=== PATIENT | female | born 1970 | race African-American/Black ===

== ENCOUNTER 2017-03-04 12:20 | Emergency (ER) | payer OTHER ==
[2017-03-04 12:35] VITALS: BP 147/86; PULSE 70; TEMP 98.5; BMI 27.1
[2017-03-04] MEDS ORDERED: KETOROLAC TROMETHAMINE 30 MG/1 ML VIAL IM ONE (13:32)
[2017-03-04] MEDS ORDERED: diazePAM 2 MG TABLET PO ONE (13:32)
[2017-03-04] MEDS ORDERED: KETOROLAC TROMETHAMINE 30 MG/1 ML VIAL ONE (13:36)
[2017-03-04] MEDS ORDERED: diazePAM 2 MG TABLET ONE (13:37)
[2017-03-04 13:46] LABS: URINE APPEARANCE SLCLOUDY; URINE BILIRUBIN NEGATIVE (NEGATIVE); URINE COLOR YELLOW; URINE GLUCOSE (UA) NEGATIVE (NEGATIVE); URINE KETONE NEGATIVE (NEGATIVE); URINE NITRITE NEGATIVE (NEGATIVE); URINE PROTEIN NEGATIVE (NEGATIVE); URINE UROBILINOGEN NEGATIVE E.U./dl (0.2-1.0)
[2017-03-04 13:47] LABS: URINE BLOOD 2+ (NEGATIVE); URINE LEUK ESTERASE TRACE (NEGATIVE)
[2017-03-04 13:49] LABS: URINE MUCUS RARE; URINE RBC 2 /hpf (0-3); URINE WBC 5 /hpf (3-5)
--- NOTE | 2017-03-04 14:07 | PDOC ---
History of Present Illness - General Chief Complaint: Back Pain Stated Complaint: BACK PAIN Time Seen by Provider: 03/04/17 12:46 History Source: Patient Exam Limitations: No Limitations - History of Present Illness Initial Comments: 03/04/17 14:06 CHIEF COMPLAINT: Back pain HISTORY OF PRESENT ILLNESS: This is an otherwise healthy 46 year old female who presents to the ED complaining of left lower back pain. She reports that she lifted several heavy boxes while working yesterday. The pain did not start immediately, but did "keep me up all night". She denies fevers/chills, nausea/ vomiting, or any other symptoms. She has not had LE numbness or weakness. She denies incontinence of urine or stool. Vital signs on arrival are notable for BP 147/86. REVIEW OF SYSTEMS: GENERAL/CONSTITUTIONAL: No fevers or chills. No weakness. No weight change. HEAD, EYES, EARS, NOSE AND THROAT: No change in vision. No ear pain or discharge. No sore throat. CARDIOVASCULAR: No chest pain or palpitations. RESPIRATORY: No cough, wheezing, or shortness of breath. GASTROINTESTINAL: No nausea, vomiting, diarrhea or constipation. GENITOURINARY: No dysuria, frequency, or change in urination. LMP finished Friday. MUSCULOSKELETAL: See HPI. SKIN: No rash or easy bruising. NEUROLOGIC: No headache, vertigo, loss of consciousness, or loss of sensation. HEMATOLOGIC/LYMPHATIC: No anemia, easy bleeding, or history of blood clots. ALLERGIC/IMMUNOLOGIC: No hives or skin allergy. No latex allergy. PHYSICAL EXAM: GENERAL: The patient is awake, alert, and fully oriented, in no acute distress. ENT: Pupils equal, round and reactive to light, extraocular movements intact, sclera anicteric, conjunctiva clear. Neck supple. LUNGS: Clear to auscultation bilaterally. Normal excursion. No respiratory distress or use of accessory muscles. CV: RRR, S1/S2, no MRG. Cap refill < 2 sec. ABDOMEN: Soft, non-distended, non-tender. EXTREMITIES: Normal range of motion, no edema. NEUROLOGICAL: Normal speech, normal gait. CN II-XII grossly intact. Left lumbar paravertebral tenderness, left CVA tenderness. PSYCH: Normal mood, normal affect. SKIN: Warm, dry, normal turgor, no rashes or lesions noted. Past History - Past Medical History Allergies/Adverse Reactions: Allergies Allergy/AdvReac Type Severity Reaction Status Date / Time No Known Allergies Allergy Verified 03/04/17 12:35 Home Medications: Ambulatory Orders Ibuprofen [Motrin -] 600 mg PO QID PRN #30 tablet 03/04/17 Oxycodone HCl/Acetaminophen [Percocet 5-325 mg Tablet] 1 - 2 tab PO Q6H PRN #20 tab MDD 6 tabs 03/04/17 Tamsulosin HCl [Flomax] 0.4 mg PO DAILY #7 capsule 03/04/17 Cardiac Disorders: Yes - Surgical History Abdominal Surgery: Yes (ectopic ) - Immunization History Immunization Up to Date: Yes - Psycho/Social/Smoking Cessation Hx Anxiety: No Suicidal Ideation: No Smoking History: Never smoked Have you smoked in the past 12 months: No Number of Cigarettes Smoked Daily: 0 Cigars Per Day: 0 Hx Alcohol Use: No Drug/Substance Use Hx: No Substance Use Type: None *Physical Exam - Vital Signs Last Vital Signs Temp Pulse Resp BP Pulse Ox 98.5 F 70 18 147/86 97 03/04/17 12:32 03/04/17 12:32 03/04/17 12:32 03/04/17 12:32 03/04/17 12:32 ED Treatment Course - ADDITIONAL ORDERS Additional order review: Laboratory Results 03/04/17 03/04/17 13:30 12:46 Urine Color Yellow Urine Appearance Slcloudy Urine pH 6.0 Ur Specific [place] 1.028 Urine Protein Negative Urine Glucose (UA) Negative Urine Ketones Negative Urine Blood 2+ H Urine Nitrite Negative Urine Bilirubin Negative Urine Urobilinogen Negative Ur Leukocyte Esterase Trace H Urine RBC 2 Urine WBC 5 Ur Epithelial Cells Moderate Urine Mucus Rare Urine HCG, Qual Negative - RADIOLOGY Radiology Studies Ordered: Category Date Time Status SPIRAL- RENAL-STONE CT [CT] Stat CT Scan 03/04/17 13:52 Ordered - Medications Given in the ED: ED Medications Discontinued Medications Generic Name Dose Route Start Last Admin Trade Name Freq PRN Reason Stop Dose Admin Diazepam 2 mg 03/04/17 13:32 03/04/17 13:40 Valium - PO 03/04/17 13:33 2 mg ONCE ONE Administration Ketorolac Tromethamine 30 mg 03/04/17 13:32 03/04/17 13:40 Toradol Injection - IM 03/04/17 13:33 30 mg ONCE ONE Administration Medical Decision Making - Medical Decision Making 03/04/17 14:10 A/P: 46 year old female with low back pain, likely traumatic, but with left CVA tenderness. -Toradol 30mg IM and diazepam 2mg po -UA with 2+ blood -Will obtain CT spiral to r/o renal stone 03/04/17 16:23 CT shows 1 to 2 mm left UVJ calculus. No hydronephrosis or hydroureter. -Flomax -Percocet/ibuprofen -Urology followup -Return precautions reviewed *DC/Admit/Observation/Transfer Diagnosis at time of Disposition: Kidney stone - Discharge Dispostion Admit: No - Prescriptions Prescriptions: Tamsulosin HCl [Flomax] 0.4 mg PO DAILY #7 capsule Ibuprofen [Motrin -] 600 mg PO QID PRN #30 tablet PRN Reason: Pain Oxycodone HCl/Acetaminophen [Percocet 5-325 mg Tablet] 1 - 2 tab PO Q6H PRN #20 tab MDD 6 tabs PRN Reason: Pain - Referrals Referrals: Tc Elliott MD [Primary Care Provider] - Santy Boyd MD [Staff Physician] - 1 week (Urology) - Patient Instructions Printed Discharge Instructions: DI for Kidney Stones Additional Instructions: -Take Percocet and ibuprofen as prescribed for pain and Flomax as prescribed to help the stone pass -Follow up with urology (referral enclosed) -Return here for fever, uncontrolled pain, or any other concerning symptoms - Post Discharge Activity Work/School Note: Back to Work
[2017-03-04] MEDS ORDERED: TAMSULOSIN HCL 0.4 MG CAP.ER.24H (FP) PO ONE (16:09)
[2017-03-04] MEDS ORDERED: OXYCODONE/APAP 5/325MG COMBO TABLET PO ONE (16:13)
[2017-03-04] MEDS ORDERED: OXYCODONE/APAP 5/325MG COMBO TABLET ONE (16:19)
[2017-03-04] MEDS ORDERED: TAMSULOSIN HCL 0.4 MG CAP.ER.24H (FP) ONE (16:22)
== END 2017-03-04 16:25 | disposition home or self-care (01) ==
LOC: JERFT 12:20
PROC: 3E0233Z Introduction of Anti-inflammatory into Muscle, Percutaneous Approach (ICD-10-PCS; principal; 2017-03-04)
DX: N20.0 Calculus of kidney (principal)
CPT/HCPCS: 74176; 81003; 81015; 84703; 96372; 99281-25

== ENCOUNTER 2017-12-19 02:52 | Emergency (ER) | payer OTHER ==
[2017-12-19 03:09] VITALS: TEMP 98.6; BMI 27.4
--- NOTE | 2017-12-19 03:19 | PDOC ---
History of Present Illness - General Chief Complaint: Chest Pain Stated Complaint: CHEST PAIN Time Seen by Provider: 12/19/17 03:17 History Source: Patient Exam Limitations: No Limitations Past History - Past Medical History Allergies/Adverse Reactions: Allergies Allergy/AdvReac Type Severity Reaction Status Date / Time No Known Allergies Allergy Verified 12/19/17 03:08 Home Medications: Ambulatory Orders Aspirin 81 mg PO DAILY 12/19/17 Cardiac Disorders: Yes ([place]) COPD: No - Surgical History Abdominal Surgery: Yes (ectopic ) - Immunization History Immunization Up to Date: Yes - Suicide/Smoking/Psychosocial Hx Smoking History: Never smoked Have you smoked in the past 12 months: No Number of Cigarettes Smoked Daily: 0 Cigars Per Day: 0 Information on smoking cessation initiated: No Hx Alcohol Use: No Drug/Substance Use Hx: No Substance Use Type: None *Physical Exam - Vital Signs Last Vital Signs Temp Pulse Resp BP Pulse Ox 98.6 F 70 20 143/85 99 12/19/17 02:53 12/19/17 02:53 12/19/17 02:53 12/19/17 02:53 12/19/17 02:53 Heart Score/ECG Review - History History: Slightly suspicious - Electrocardiogram EKG: Normal - Age Age: 45-65 - Risk Factors Based on the list above the patient has:: No risk factors known - Troponin Troponin: </= normal limit - Score Heart Score - Total: 1 ED Treatment Course - LABORATORY CBC & Chemistry Diagram: 12/19/17 03:53 12/19/17 03:53 *DC/Admit/Observation/Transfer Diagnosis at time of Disposition: Atypical chest pain - Discharge Dispostion Disposition: HOME Condition at time of disposition: Stable Admit: No - Referrals Referrals: Tc Elliott MD [Primary Care Provider] - - Patient Instructions Printed Discharge Instructions: DI for Atypical Chest Pain Additional Instructions: Your EKG and blood work were normal today. It does not appear you had a heart attack today. You may have irritated the muscles in your chest wall your lifting a heavy box. You may take ibuprofen 100 mg 3 times a day to help with her pain. You may also use the Percocet every 6 hours as needed for breakthrough pain. Please follow-up with your primary care doctor this week. Avoid lifting heavy boxes greater than 10 pounds. Return to the emergency department if you have worsening chest pain, shortness of breath, lightheadedness, palpitations, dizziness, or any changes in your symptoms. - Post Discharge Activity Forms/Work/School Notes: Back to Work
[2017-12-19] MEDS ORDERED: ASPIRIN COATED 81 MG TABLET.EC ONE (03:38)
--- NOTE | 2017-12-19 04:10 | PDOC ---
*Physical Exam - Vital Signs Last Vital Signs Temp Pulse Resp BP Pulse Ox 98.6 F 70 20 143/85 99 12/19/17 02:53 12/19/17 02:53 12/19/17 02:53 12/19/17 02:53 12/19/17 02:53 ED Treatment Course - Medications Given in the ED: ED Medications Discontinued Medications Generic Name Dose Route Start Last Admin Trade Name Freq PRN Reason Stop Dose Admin Oxycodone/Acetaminophen 1 combo 12/19/17 03:32 12/19/17 03:52 Percocet 5/325 - PO 12/19/17 03:33 1 combo ONCE ONE Administration Medical Decision Making - Medical Decision Making 12/19/17 04:08 Pt seen by the Advanced Practice Provider under my direct supervision Pt interviewed and examined Ancillary studies reviewed I agree with plan as outlined by the Advanced Practice Provider ERIS Monte 47-year-old female with prior cardiac history presents with atypical chest pain. The patient was lifting a TV cart and subsequently started feeling reproducible midsternal chest pain. No short of breath or dyspnea on exertion. Since patient's pain is reports we'll palpation and movement. I have very low seizure acute coronary syndrome at this time. We'll obtain one troponin, and if negative patient can be discharged. *DC/Admit/Observation/Transfer - Referrals Referrals: Tc Elliott MD [Primary Care Provider] - - Patient Instructions - Post Discharge Activity
[2017-12-19 04:25] LABS: BASO % 0.7 % (0-2.0); EOS % 3.5 % (0-4.5); HEMATOCRIT 32.7 % (32.4-45.2); LYMPH % 50.1 % (8-40); MCH 30.6 pg (25.7-33.7); MCHC 33.6 g/dl (32.0-36.0); MEAN CELL VOLUME 91.3 fl (80-96); MEAN PLT VOLUME 8.4 fl (7.5-11.1); MONO % 8.6 % (3.8-10.2); NEUT % 37.1 % (42.8-82.8); PLATELET COUNT 247 K/MM3 (134-434); RBC 3.59 M/mm3 (3.60-5.2); RDW 15.2 % (11.6-15.6); WHITE BLOOD COUNT 4.4 K/mm3 (4.0-10.0)
[2017-12-19 04:37] LABS: INR 1.12 (0.82-1.09); PROTHROMBIN TIME (PATIENT) 12.6 SEC (9.98-11.88)
[2017-12-19 04:48] LABS: ALBUMIN 3.4 g/dl (3.4-5.0); ANION GAP 9 (8-16); BLOOD UREA NITROGEN 15 mg/dL (7-18); CALCIUM 8.6 mg/dL (8.5-10.1); CHLORIDE 108 mmol/L (98-107); CO2 24 mmol/L (21-32); GLUCOSE,RANDOM 89 mg/dL (74-106); MAGNESIUM 1.7 mg/dL (1.8-2.4); PHOSPHOROUS 3.2 mg/dL (2.5-4.9); POTASSIUM 3.6 mmol/L (3.5-5.1); SODIUM 141 mmol/L (136-145)
[2017-12-19 04:53] LABS: BILIRUBIN,TOTAL 0.2 mg/dL (0.2-1.0); CREATININE 0.8 mg/dL (0.55-1.02); SGOT/AST 9 U/L (15-37); SGPT/ALT 13 U/L (12-78); TOT PROT 7.1 g/dl (6.4-8.2)
[2017-12-19 04:54] LABS: ALK PHOS 65 U/L (45-117)
[2017-12-19 05:51] VITALS: BP 115/75; PULSE 57
--- NOTE | 2017-12-19 09:58 | EKG ---
Test Reason : Blood Pressure : / mmHG Vent. Rate : 066 BPM Atrial Rate : 066 BPM P-R Int : 170 ms QRS Dur : 078 ms QT Int : 422 ms P-R-T Axes : 066 018 022 degrees QTc Int : 442 ms NORMAL SINUS RHYTHM ANTERIOR INFARCT , AGE UNDETERMINED ABNORMAL ECG WHEN COMPARED WITH ECG OF 09-NOV-2016 11:51, ANTERIOR INFARCT IS NOW PRESENT Confirmed by CODY BRISENO MD ([id number]) on 12/19/2017 9:58:19 AM Referred By: Confirmed By:CODY BRISENO MD
[2017-12-19] MEDS ORDERED: ASPIRIN COATED 81 MG TABLET.EC PO SCH (10:00)
== END 2017-12-19 05:51 | disposition home or self-care (01) ==
LOC: JER 02:52
DX: R07.89 Other chest pain (principal)
CPT/HCPCS: 36415; 71045-TC; 80053; 82550; 83735; 84100; 84484; 85025; 85610; 93005; 93010; 99283-25

== ENCOUNTER 2018-03-24 13:19 | Emergency (ER) | payer OTHER ==
[2018-03-24 13:27] VITALS: BP 136/72; PULSE 57; TEMP 98.1; BMI 28.4
--- NOTE | 2018-03-24 14:26 | PDOC ---
History of Present Illness - General Chief Complaint: Allergic Reaction Stated Complaint: SWOLLEN LIP Time Seen by Provider: 03/24/18 13:58 History Source: Patient Exam Limitations: No Limitations - History of Present Illness Initial Comments: 03/24/18 14:23 Patient is a 47 old female, history of [place] currently only taking aspirin presents for evaluation of swelling to left upper lateral lip patient reports yesterday she was outside all day went to take a nap and woke up an hour after started to have swelling to left upper lip. He noted a white bubble to left upper lateral lip. Called out of work and was instructed to obtain a doctor's note here to ER. Denies any respiratory difficulty, or difficulty swallowing. Past Medical History: [Denies]. Allergies: No known allergies Family History: Non-contributory Social History: Denies smoking, alcohol use, or IVDU Review of Systems GENERAL/CONSTITUTIONAL: [No fever or chills. No weakness. No weight change.] HEAD, EYES, EARS, NOSE AND THROAT: [No change in vision. No ear pain or discharge. No sore throat. Swelling to left upper lateral lip ] CARDIOVASCULAR: [No chest pain or shortness of breath.] RESPIRATORY: [No cough, wheezing, or hemoptysis.] GASTROINTESTINAL: [No nausea, vomiting, diarrhea or constipation. No rectal bleeding.] GENITOURINARY: [No dysuria, frequency, or change in urination.] MUSCULOSKELETAL: [No joint or muscle swelling or pain. No neck or back pain.] SKIN AND BREASTS: [No rash or easy bruising.] NEUROLOGIC: [No headache, vertigo, loss of consciousness, or loss of sensation.] PSYCHIATRIC: [No depression or anxiety.] ENDOCRINE: [No increased thirst. No abnormal weight change.] HEMATOLOGIC/LYMPHATIC: [No anemia, easy bleeding, or history of blood clots.] ALLERGIC/IMMUNOLOGIC: [No hives or skin allergy. No latex allergy.] Physical Exam: GENERAL: [The patient is awake, alert, and fully oriented, in no acute distress. ] HEAD: [Normal with no signs of trauma.] EYES: [Pupils equal, round and reactive to light, extraocular movements intact, sclera anicteric, conjunctiva clear.] ENT: [Ears normal, nares patent, oropharynx clear without exudates. Moist mucous membranes. No uvula deviation. Swelling to left upper lateral lip with small white flat lesion to upper lip.] NECK: [Normal range of motion, supple without lymphadenopathy, JVD, or masses.] LUNGS: [Breath sounds equal, clear to auscultation bilaterally. No wheezes, and no crackles.] HEART: [Regular rate and rhythm, normal S1 and S2 without murmur, rub or gallop. ] ABDOMEN: [Soft, nontender, normoactive bowel sounds. No guarding, no rebound. No masses. No bruising or abrasions] RECTAL : [Guaiac negative, normal rectal tone.] MUSCULOSKELETAL: [Normal range of motion, no edema. No clubbing or cyanosis. No cords, erythema, or tenderness. No CVA Tenderness with fist.] NEUROLOGICAL: [Cranial nerves II through XII grossly intact. Normal speech, normal gait.] PSYCH: [Normal mood, normal affect.] SKIN: [Warm, Dry, normal turgor, no rashes or lesions noted.] 03/24/18 14:31 03/24/18 19:55 03/24/18 19:57 Past History - Past Medical History Allergies/Adverse Reactions: Allergies Allergy/AdvReac Type Severity Reaction Status Date / Time No Known Allergies Allergy Verified 03/24/18 13:23 Home Medications: Ambulatory Orders Aspirin 81 mg PO DAILY 12/19/17 Acyclovir 5% Ointment [Zovirax 5% Ointment -] 1 applic TP Q4HWA #1 tube Hydrocortisone 1% Cream [Hytone 1% Cream -] 1 applic TP BID #1 tube 03/24/18 Cardiac Disorders: Yes ([place]) COPD: No DVT: No - Surgical History Abdominal Surgery: Yes (ectopic ) - Immunization History Immunization Up to Date: Yes - Suicide/Smoking/Psychosocial Hx Smoking History: Never smoked Have you smoked in the past 12 months: No Number of Cigarettes Smoked Daily: 0 Cigars Per Day: 0 Information on smoking cessation initiated: No Hx Alcohol Use: No Drug/Substance Use Hx: No Substance Use Type: None *Physical Exam - Vital Signs Last Vital Signs Temp Pulse Resp BP Pulse Ox 98.1 F 57 L 18 136/72 100 03/24/18 13:25 03/24/18 13:25 03/24/18 13:25 03/24/18 13:25 03/24/18 13:25 Medical Decision Making - Medical Decision Making 03/24/18 19:56 A/P: Patient with swelling to left upper lip with a small white lesion noted, we 'll start patient on Valtrex cream and hydrocortisone, follow-up with her primary care doctor tomorrow ice to area explained to patient that she should apply ice to area for any increased swelling, respiratory difficulty, difficulty swallowing, or any other concerns return immediately to ER. *DC/Admit/Observation/Transfer Diagnosis at time of Disposition: Swollen upper lip - Discharge Dispostion Disposition: HOME Condition at time of disposition: Stable Decision to Admit order: No - Prescriptions Prescriptions: Acyclovir 5% Ointment [Zovirax 5% Ointment -] 1 applic TP Q4HWA #1 tube Hydrocortisone 1% Cream [Hytone 1% Cream -] 1 applic TP BID #1 tube - Referrals Referrals: Tc Elliott MD [Primary Care Provider] - - Patient Instructions Additional Instructions: Ice to upper lip, please apply ice to area for the next 48 hours If any increased redness, swelling or signs of infection return to the ER. - Post Discharge Activity Forms/Work/School Notes: Back to Work
== END 2018-03-24 14:51 | disposition home or self-care (01) ==
LOC: JERFT 13:19
DX: K13.0 Diseases of lips (principal); I25.2 Old myocardial infarction; Z79.82 Long term (current) use of aspirin
CPT/HCPCS: 99281-25

== ENCOUNTER 2020-01-11 02:02 | Observation (INO) | payer OTHER ==
[2020-01-11 02:17] VITALS: BMI 28.7
--- NOTE | 2020-01-11 03:25 | PDOC ---
History of Present Illness - General Chief Complaint: Chest Pain Stated Complaint: CHEST PAIN Time Seen by Provider: 01/11/20 02:36 History Source: Patient Exam Limitations: No Limitations - History of Present Illness Initial Comments: 01/11/20 06:29 49F PMH peripartum ACS (seen at [facility], xfer'd to [facility], cath'd w/o stent, 36yo) presenting with 1 hour of sudden onset right sided sharp nonpleuritic nonradiating chest pain that occurred when patient was about to go to bed. Took 81mg ASA and pain is resolving, now almost gone. Denies diaphoresis, n/v, sob. No OCPs, calf swelling/pain, hx VTE, recent travel, recent surgeries, recent immobilization. No FHx SCD or early ACS. Endorses runny nose x1 day. Endorses recent stressors. Past History - Past Medical History Allergies/Adverse Reactions: Allergies Allergy/AdvReac Type Severity Reaction Status Date / Time No Known Allergies Allergy Verified 03/24/18 13:23 Home Medications: Ambulatory Orders Aspirin 81 mg PO DAILY 12/19/17 Ferrous Sulfate [Feosol] 325 mg PO TID #60 tablet 01/11/20 Cardiac Disorders: Yes ([place]) COPD: No DVT: No - Surgical History Abdominal Surgery: Yes (ectopic ) - Immunization History Immunization Up to Date: Yes - Psycho Social/Smoking Cessation Hx Smoking History: Never smoked Have you smoked in the past 12 months: No Number of Cigarettes Smoked Daily: 0 Cigars Per Day: 0 Hx Alcohol Use: No Drug/Substance Use Hx: No Substance Use Type: None Review of Systems - Review of Systems Able to Perform ROS?: Yes Comments:: 01/11/20 06:29 CONSTITUTIONAL: Denies F / C HEENT: endorses runny nose. Denies headache, lightheadedness, dizziness RESP: Denies SOB, cough CARD: endorses right sided cp. Denies palpitations GI: Denies N / V / D, abdominal pain, bloody stool, inability to tolerate PO : Denies dysuria, hematuria, frequency SKIN: Denies rashes NEURO: Denies numbness, tingling, weakness MSK: Denies back pain *Physical Exam - Vital Signs Last Vital Signs Temp Pulse Resp BP Pulse Ox 97.7 F 67 18 162/79 100 01/11/20 02:15 01/11/20 02:15 01/11/20 02:15 01/11/20 02:15 01/11/20 02:15 - Physical Exam 01/11/20 06:29 GEN: NAD, comfortable. AAOx3. HEENT: NC/AT. No facial asymmetry. Normal voice. Supple neck w/ FROM. CV: S1/S2, RRR, no m/r/g LUNG: CTAB, no wheezes, crackles, rales, rhonchi. GI: Soft, ndnt, +BS, no guarding, no rebound. No masses. MSK: No LE edema. no calf ttp. No obvious deformities of all extremities. SKIN: Warm, dry, no rashes appreciated. PSYCH: Normal mood and affect. NEURO: Moving all extremities well. ED Treatment Course - LABORATORY CBC & Chemistry Diagram: 01/11/20 04:10 01/11/20 04:10 - RADIOLOGY Radiology Studies Ordered: Category Date Time Status CHEST X-RAY PORTABLE* [RAD] Stat Radiology 01/11/20 02:57 Ordered Medical Decision Making - Medical Decision Making 01/11/20 03:22 49F PMH peripartum ACS ([facility], 36yo) presenting with 1 hour of sudden onset right sided sharp nonpleuritic nonradiating chest pain occurring at rest; took one 81mg ASA, resolving pain. r/o ACS. PERC neg unlikely PE. consider pleurisy, MSK. - CBC, CMP, Cardiac - EKG - CXR - Monitor - Tele EKG 0214 HR 63 TN 168 QRS 78 QTc 427; NSR 01/11/20 04:12 positive nuclear stress test in 2013 per chart review: + EKG changes during stress; reversible septal perfusion defect - no district court reporter 01/11/20 05:07 labs reviewed. //admitted Discharge - Discharge Information Problems reviewed: Yes Clinical Impression/Diagnosis: Chest pain at rest - Follow up/Referral - Patient Discharge Instructions - Post Discharge Activity
[2020-01-11 04:28] LABS: BASO % 0.8 % (0-2.0); EOS % 4.3 % (0-4.5); HEMATOCRIT 30.7 % (32.4-45.2); HEMOGLOBIN 10.1 GM/dL (10.7-15.3); LYMPH % 25.8 % (8-40); MCH 30.1 pg (25.7-33.7); MCHC 32.9 g/dl (32.0-36.0); MEAN CELL VOLUME 91.5 fl (80-96); MONO % 9.8 % (3.8-10.2); NEUT % 59.3 % (42.8-82.8); PLATELET COUNT 227 K/MM3 (134-434); RBC 3.35 M/mm3 (3.60-5.2); RDW 15.9 % (11.6-15.6); WHITE BLOOD COUNT 4.4 K/mm3 (4.0-10.0)
[2020-01-11 04:41] LABS: INR 1.09 (0.83-1.09); PROTHROMBIN TIME (PATIENT) 12.9 SEC (9.7-13.0)
[2020-01-11 04:44] LABS: ACTIVATED PTT 34.5 SECONDS (25.2-36.5)
[2020-01-11 05:06] LABS: ALBUMIN 3.6 g/dl (3.4-5.0); BILIRUBIN,TOTAL 0.3 mg/dL (0.2-1); CALCIUM 8.7 mg/dL (8.5-10.1); CREATININE 0.9 mg/dL (0.55-1.3); POTASSIUM 3.5 mmol/L (3.5-5.1); TOT PROT 6.9 g/dl (6.4-8.2)
--- NOTE | 2020-01-11 05:13 | PDOC ---
Attending Attestation - Resident Resident Name: Bradford Matthews - ED Attending Attestation I have performed the following: I have examined & evaluated the patient, The case was reviewed & discussed with the resident, I agree w/resident's findings & plan, Exceptions are as noted - HPI HPI: 01/11/20 05:11 41-year-old female history of LA here today complaining of chest pain. 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 her son was 1 week old she had a catheterization through her wrist at that time she states they did not find any stent double lesions or angioplasty - Physicial Exam PE: 01/11/20 05:12 Awake alert no acute distress lungs are clear bilaterally heart is regular 30 murmurs rubs or gallops abdomen soft nontender skin is warm and well-perfused dry legs are without edema 2+ symmetric DP pulses - Medical Decision Making 01/11/20 05:12 49-year-old female history of previous LA here today complaining of chest pain plan rule out anginal or LA CBC CMP troponin EKG chest x-ray to area other pathology patient will likely require admission to observation or telemetry for serial troponins to rule out ACS
[2020-01-11] MEDS ORDERED: SODIUM CHLORIDE 1,000 ML IV SCH (06:15)
[2020-01-11] MEDS ORDERED: ASPIRIN 81 MG CHEWABLE TABLETS PO ONE (06:17)
--- NOTE | 2020-01-11 06:21 | PN ---
Teaching Attending Note Name of Resident: Jarrod Heller ATTENDING PHYSICIAN STATEMENT I saw and evaluated the patient. I reviewed the resident's note and discussed the case with the resident. I agree with the resident's findings and plan as documented. SUBJECTIVE: 49-year-old woman with history of peripartum ACS 10 years ago status post angiography however no stent placed, complains of right-sided sharp, nonpleuritic, nonradiating chest pain that occurred at around 8 PM on 2019. Patient was getting ready to go to bed at that time when chest pain started. Endorse taking aspirin right after this event. She denied any shortness of breath, recent travels, OCPs, calf swelling or pain or recent immobilizations. She does not take any illicit drugs, smoke, or drink excessively. No significant family history of cardiac disease endorsed. OBJECTIVE: Last Vital Signs Temp Pulse Resp BP Pulse Ox 97.7 F 67 18 162/79 100 01/11/20 02:15 01/11/20 02:15 01/11/20 02:15 01/11/20 02:15 01/11/20 02:15 On physical exam patient was not in any distress, normal skin exam, abdomen soft , nontender, Abnormal Lab Results 01/11/20 01/11/20 04:10 04:10 RBC 3.35 L Hgb 10.1 L Hct 30.7 L RDW 15.9 H Chloride 109 H Anion Gap 6 L AST 10 L ALT 12 L Normal EKG Chest x-ray reviewed ASSESSMENT AND PLAN: 49-year-old woman with atypical chest painnormal EKG, troponin negative x1 Telemetry observation Trend troponin Cardiology evaluation Echo #Anemia Iron studies, ferritin, vitamin B12 Ferrous sulfate DVT prophylaxisheparin subcutaneously
--- NOTE | 2020-01-11 06:34 | HP ---
CHIEF COMPLAINT: chest pain PCP: HISTORY OF PRESENT ILLNESS: Patient is a 49 year old female with reported history of SD (approx 10 years ago) presents with complaint of chest pain. Patient endorses symptoms began this evening approx 8PM as she was resting on her bed. Pain was described as, sharp, substernal, nonradiating. She took Aspirin 81mg, which was minimally palliative; pain lasted approx 10 minutes, prior to spontaneous improvement. Symptoms were not associated with shortness of breath. Patient denies prior occurrence of this pain. Currently, chest pain has resolvd. Denies subjective fevers, chills, shortness of breath, chest pain, palpitations, abdominal pain, nausea, vomiting, melena, hematochezia. Patient states she had an SD 10 years ago; at that time she describes cardiac catheterization (performed at [facility]), however does not endorse any stents placed at that time. She admits an exercise stress test that was performed in 2014; reported borderline stress test with ST segment abnormalities noted. 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 Currently experiencing menstrual period. ER course was notable for: (1) EKG reveals normal sinus rhythm at 63 BPM. Negative for ischemic changes. (2) Troponin 0.02 (3) Recent Travel: PAST MEDICAL HISTORY: SD (10 years ago) PAST SURGICAL HISTORY: x2 (18 years ago, 10 years ago), cardiac catheterization (10 years ago) Family History: Mother with angina, however denies any family history of SD. Denies known oncologic family history. Social History: Lives in apartment with children. Works as MIDDLE SCHOOL COACH. Independent in activities daily living. Smoking: Denies smoking cigarettes Alcohol: Denies alcohol consumption Drugs: Denies illicit drug use. Allergies No Known Allergies Allergy (Verified 03/24/18 13:23) HOME MEDICATIONS: Home Medications Medication Instructions Recorded Aspirin 81 mg PO DAILY 12/19/17 Acyclovir 5% Ointment [Zovirax 5% 1 applic TP Q4HWA #1 tube 03/24/18 Ointment -] Hydrocortisone 1% Cream [Hytone 1% 1 applic TP BID #1 tube 03/24/18 Cream -] REVIEW OF SYSTEMS CONSTITUTIONAL: Absent: fever, chills, diaphoresis, generalized weakness, malaise, loss of appetite, weight change HEENT: Absent: rhinorrhea, nasal congestion, throat pain, throat swelling, difficulty swallowing, mouth swelling, ear pain, eye pain, visual changes CARDIOVASCULAR: Admits: chest pain (resolved) Absent: syncope, palpitations, irregular heart rate, lightheadedness, peripheral edema RESPIRATORY: Absent: cough, shortness of breath, dyspnea with exertion, orthopnea, wheezing, stridor, hemoptysis GASTROINTESTINAL: Absent: abdominal pain, abdominal distension, nausea, vomiting, diarrhea, constipation, melena, hematochezia GENITOURINARY: Absent: dysuria, frequency, urgency, hesitancy, hematuria, flank pain, genital pain MUSCULOSKELETAL: Absent: myalgia, arthralgia, joint swelling, back pain, neck pain SKIN: Absent: rash, itching, pallor HEMATOLOGIC/IMMUNOLOGIC: Absent: easy bleeding, easy bruising, lymphadenopathy, frequent infections ENDOCRINE: Absent: unexplained weight gain, unexplained weight loss, heat intolerance, cold intolerance NEUROLOGIC: Absent: headache, focal weakness or paresthesias, dizziness, unsteady gait, seizure, mental status changes, bladder or bowel incontinence PSYCHIATRIC: Absent: anxiety, depression, suicidal or homicidal ideation, hallucinations. PHYSICAL EXAMINATION Vital Signs - 24 hr 01/11/20 02:15 Temperature 97.7 F Pulse Rate 67 Respiratory 18 Rate Blood Pressure 162/79 O2 Sat by Pulse 100 Oximetry (%) GENERAL: The patient is awake, alert, and fully oriented, in no acute distress. HEAD: Normocephalic, atraumatic. EYES: PERRL, extraocular movements intact, sclera anicteric, conjunctiva clear. ENT: Oropharynx clear, without erythema or exudates. Moist mucous membranes. NECK: Trachea midline, full range of motion. Supple without lymphadenopathy. LUNGS: Breath sounds equal, clear to auscultation bilaterally. No wheezes, no crackles. No accessory muscle use. HEART: Regular rate and rhythm. S1, S2 without murmur, rub or gallop. Chest pain non reproducible upon palpation. ABDOMEN: Soft, nondistended, nontender to light and deep palpation x4 quadrants. No rebound tenderness, no guarding. Normoactive bowel sounds x4 quadrants. No hepatosplenomegaly, no masses appreciated. Horizontal section scar intact, well healed. EXTREMITIES: 2+ radial, dorsalis pedis pulses bilaterally. Warm, well-perfused. No lower extremity edema bilaterally. NEUROLOGICAL: Cranial nerves II through XII grossly intact. Normal speech. No gross focal deficits. PSYCH: Normal mood, normal affect upon my encounter. SKIN: Warm, dry. Laboratory Results - last 24 hr 01/11/20 01/11/20 01/11/20 04:10 04:10 04:10 WBC 4.4 RBC 3.35 L Hgb 10.1 L Hct 30.7 L MCV 91.5 MCH 30.1 MCHC 32.9 RDW 15.9 H Plt Count 227 MPV 8.0 Absolute Neuts (auto) 2.6 Neutrophils % 59.3 D Lymphocytes % 25.8 D Monocytes % 9.8 Eosinophils % 4.3 Basophils % 0.8 Nucleated RBC % 0 PT with INR 12.90 INR 1.09 PTT (Actin FS) 34.5 Sodium 140 Potassium 3.5 Chloride 109 H Carbon Dioxide 25 Anion Gap 6 L BUN 13.0 Creatinine 0.9 Est GFR (CKD-EPI)AfAm 87.63 Est GFR (CKD-EPI)NonAf 75.61 Random Glucose 100 Calcium 8.7 Total Bilirubin 0.3 AST 10 L ALT 12 L Alkaline Phosphatase 58 Creatine Kinase 86 Troponin I 0.02 Total Protein 6.9 Albumin 3.6 ASSESSMENT/PLAN: Patient is a 49 year old female with reported history of SD (approx 10 years ago) presents with complaint of chest pain. Atypical chest pain -Sharp, substernal chest pain not associated with exertion, shortness of breath , or palpitations. Cardiac catheterization performed 10 years ago was negative for coronary artery occlusion; no stents placed. However, she had borderline stress test five years ago. -EKG reveals normal sinus rhythm, without ischemic changes. Initial troponin 0.02. Will trend. -Chest radiograph negative for acute infiltrates (upon my reading); follow radiologist read. -Will give Aspirin to load with 325mg (patient states she took 81mg earlier today). -Cardiac telemetry monitoring -[facility] transthoracic ECHO -Cardiology evaluation (Dr. Joyce [facility]) Anemia -Hgb 10.1/ Hct 30.7 (baseline Hgb approx 11). Normocytic at 91. Patient denies any hemoptysis, hematuria, hematochezia, melenic stools. Denies prior colonoscopy/ endoscopy. However, she does endorse current menstrual period which could be contributing, at least in part, to her anemia. -Will obtain iron studies, folic acid, B12. -Follow CBC FEN -NS at 100mL. hour -Follow BMP -NPO, pending cardiology evaluation Prophylaxis -SCDs, early ambulation Disposition -Telemetry observation Visit type - Emergency Visit Emergency Visit: Yes Care time: The patient presented to the Emergency Department on the above date and was hospitalized for further evaluation of their emergent condition. - New Patient This patient is new to me today: Yes Date on this admission: 01/11/20 - Critical Care Critical Care patient: No ATTENDING PHYSICIAN STATEMENT I saw and evaluated the patient. I reviewed the resident's note and discussed the case with the resident. I agree with the resident's findings and plan as documented. SUBJECTIVE: OBJECTIVE: ASSESSMENT AND PLAN:
[2020-01-11] MEDS ORDERED: ASPIRIN 81 MG CHEWABLE TABLETS ONE (06:35)
--- NOTE | 2020-01-11 09:40 | EKG ---
Test Reason : Blood Pressure : / mmHG Vent. Rate : 063 BPM Atrial Rate : 063 BPM P-R Int : 168 ms QRS Dur : 078 ms QT Int : 418 ms P-R-T Axes : 056 009 036 degrees QTc Int : 427 ms NORMAL SINUS RHYTHM NORMAL ECG WHEN COMPARED WITH ECG OF 19-DEC-2017 02:58, CRITERIA FOR ANTERIOR INFARCT ARE NO LONGER PRESENT Confirmed by Jordy Tran MD ([id number]) on 01/11/2020 9:39:58 AM Referred By: Confirmed By:Jordy Tran MD
--- NOTE | 2020-01-11 10:17 | CON.CARD ---
Consult Consult Specialty:: Cardiology Referred by:: Hospitalist Reason for Consultation:: Cardiac evaluation - History of Present Illness Chief Complaint: Chest pain History of Present Illness: Patient is a 49 year old female with previous history of DE (10 years ago) who presented this time with complaints of chest pain in the med sternum described as "sharp". She states it began last night while resting on her bed. Pain was non-radiating and she denied shortness of breath or palpitations. Pain today was reported 2/10. She denies paroxysmal nocturnal dyspnea or orthopnea. She denies fever or chills. She denies nausea, vomiting, diarrhea or abdominal pain. She denies headache or lightheadedness. She had cardiac catheterization at [facility] 10 years ago and she states that it was unremarkable. She did not require stenting. - History Source History Provided By: Patient, Medical Record Limitations to Obtaining History: No Limitations - Past Medical History Cardio/Vascular: Yes: DE - Past Surgical History Past Surgical History: Yes: , Tubal Ligation - Alcohol/Substance Use Hx Alcohol Use: No - Smoking History Smoking history: Never smoked Have you smoked in the past 12 months: No Aproximately how many cigarettes per day: 0 - Social History Usual Living Arrangement: With Child ADL: Independent Home Medications - Allergies Allergies/Adverse Reactions: Allergies Allergy/AdvReac Type Severity Reaction Status Date / Time No Known Allergies Allergy Verified 03/24/18 13:23 - Home Medications Home Medications: Ambulatory Orders Aspirin 81 mg PO DAILY 12/19/17 Family Medical History Other Family History: Angina Review of Systems - Review of Systems Constitutional: denies: Chills, Fever Cardiovascular: reports: Chest Pain. denies: Palpitations, Shortness of Breath Respiratory: denies: Cough, Hemoptysis, Orthopnea, PND, SOB, SOB on Exertion, Wheezing Gastrointestinal: denies: Abdominal Pain, Constipation, Diarrhea, Melena, Nausea , Rectal Bleeding, Vomiting Genitourinary: denies: Dysuria, Hematuria Musculoskeletal: denies: Back Pain, Joint Pain Neurological: denies: Dizziness, Headache, Seizure, Syncope Vital Signs: Vital Signs Temperature 97.7 F 01/11/20 02:15 Pulse Rate 54 L 01/11/20 07:55 Respiratory Rate 18 01/11/20 07:55 Blood Pressure 140/76 01/11/20 07:55 O2 Sat by Pulse Oximetry (%) 99 01/11/20 07:55 Eyes: Yes: PERRL HENT: Yes: Atraumatic Neck: Yes: Supple Respiratory: Yes: CTA Bilaterally Gastrointestinal: Yes: Normal Bowel Sounds, Soft. No: Tenderness Cardiovascular: Yes: Regular Rate and Rhythm JVD: No Carotid Bruit: No PMI: Non-Displaced Heart Sounds: Yes: S1, S2. No: Gallop Murmur: No: Systolic Murmur, Diastolic Murmur Edema: No - Other Data Labs, Other Data: CBC, BMP 01/11/20 04:10 01/11/20 04:10 INR, PTT INR 1.09 (0.83-1.09) 01/11/20 04:10 Troponin, BNP 01/11/20 04:10 Troponin I 0.02 Laboratory Results - last 24 hr 01/11/20 01/11/20 01/11/20 04:10 04:10 04:10 WBC 4.4 RBC 3.35 L Hgb 10.1 L Hct 30.7 L MCV 91.5 MCH 30.1 MCHC 32.9 RDW 15.9 H Plt Count 227 MPV 8.0 Absolute Neuts (auto) 2.6 Neutrophils % 59.3 D Lymphocytes % 25.8 D Monocytes % 9.8 Eosinophils % 4.3 Basophils % 0.8 Nucleated RBC % 0 PT with INR 12.90 INR 1.09 PTT (Actin FS) 34.5 Sodium 140 Potassium 3.5 Chloride 109 H Carbon Dioxide 25 Anion Gap 6 L BUN 13.0 Creatinine 0.9 Est GFR (CKD-EPI)AfAm 87.63 Est GFR (CKD-EPI)NonAf 75.61 Random Glucose 100 Calcium 8.7 Iron 34 L TIBC 330 Iron Saturation 10 L Unsaturated IBC 296 H Ferritin 6.2 L Total Bilirubin 0.3 AST 10 L ALT 12 L Alkaline Phosphatase 58 Creatine Kinase 86 Troponin I 0.02 Total Protein 6.9 Albumin 3.6 Vitamin B12 328 Serum Folate 8 Normal sinus rhythm Echo: Pending Imaging - Results Chest X-ray: Report Reviewed (Unremarkable) EKG: Report Reviewed Problem List - Problems (1) Atypical chest pain Code(s): R07.89 - OTHER CHEST PAIN Assessment/Plan 1. Chest pain syndrome, atypical 2. History of DE ?cardiomyopathy PLAN: 1. Agree with echocardiography to assess LV/RV and valvular function 2. No need for additional cardiac intervention inpatient unless otherwise as patient exhibits atypical symptoms 3. If needed, stress testing (ETT) can be done as outpatient 4. Check lipid panel Further plans are to follow If Echocardiography is unremarkable, may discharge home Dominic Joyce MD
--- NOTE | 2020-01-11 12:57 | ECHO ---
Version: 1 Name: CHRISTINA LOUIS Exam: Adult Echocardiogram Study Date: 01/11/2020, 11:33 AM Age: 49 Years MMode/2D Measurements & Calculations IVSd: 1.08 cm LVIDs: 3.3 cm LVIDd: 4.8 cm LVPWd: 1.04 cm ACS: 1.93 cm Ao root diam: 2.9 cm LVOT diam: 2.03 cm LA dimension: 3.6 cm Doppler Measurements & Calculations MV E max ernesto: 76.6 cm/sec Med E/e': 11.2 MV A max ernesto: 84.4 cm/sec Med Peak E' Ernesto: 6.9 cm/sec MV E/A: 0.91 Lat E/e': 7.9 Lat Peak E' Ernesto: 9.7 cm/sec MR max P.8 mmHg Ao max P.1 mmHg JOHANN(I,D): 2.12 cm Ao mean P.1 mmHg LV V1 mean: 53.7 cm/sec Ao V2 max: 123.5 cm/sec LV V1 mean P.37 mmHg TR max ernesto: 226.4 cm/sec TR max P.9 mmHg Left Ventricle The left ventricular size, thickness and function are normal. Ejection Fraction = 65%. The transmitr al spectral Doppler flow pattern is normal for age. Right Ventricle The right ventricle is normal in size and function. Atria Normal left and right atrial size and function. Mitral Valve The mitral valve is normal. There is mild mitral regurgitation. Tricuspid Valve The tricuspid valve is normal. There is trace tricuspid regurgitation. Aortic Valve The aortic valve is normal in structure and function. Pulmonic Valve The pulmonic valve is not well seen, but is grossly normal. Great Vessels The aortic root is normal size. Normal aortic arch, descending and ascending aorta. Pericardium/Pleura There is no pericardial effusion. Summary Statements The left ventricular size, thickness and function are normal Ejection Fraction = 65%. The transmitral spectral Doppler flow pattern is normal for age. The right ventricle is normal in size and function. Normal left and right atrial size and function. The mitral valve is normal. There is mild mitral regurgitation. The tricuspid valve is normal. There is trace tricuspid regurgitation. The aortic valve is normal in structure and function. The pulmonic valve is not well seen, but is grossly normal. The aortic root is normal size. Normal aortic arch, descending and ascending aorta There is no pericardial effusion. Brett Love 01/11/2020, 12:57 PM Ordering Physician: DHAVAL HOWELL Referring Physician: DHAVAL HOWELL Performed By: Robina Flores
[2020-01-11 13:11] VITALS: BP 137/74; PULSE 62; TEMP 98.1
--- NOTE | 2020-01-11 14:21 | PN ---
Teaching Attending Note Name of Resident: Demar Sims ATTENDING PHYSICIAN STATEMENT I saw and evaluated the patient. I reviewed the resident's note and discussed the case with the resident. I agree with the resident's findings and plan as documented. SUBJECTIVE: no fever or chills. cont to have pain in a small area on the R lower sternal border, with no radiationand no change with respiration . pain has been there since last night No SOB , denies IZAGUIRRE and exertional CP. OBJECTIVE: NAD, flat affect CV: RRR. no MRG Lungs: CTAB Abd: NT, Nd , NL BS Ext : No edema or erythema . 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 1- R sided CP. atypical . EKG reviewed. trop 0.02--> 0.05 - Echo report reviewed. - Stress test frm 2013 was reviewed and d/w Dr. Maria Del Carmen rudolph. recs to get out pt Stress test as out pt 2-H/o iron def anemia. iron studies noted. -she needs to increase her iron frm once daily to TID. - she needs further w/u to figure out the cause as out pt - she will need to be evaluated fro iron infusion as out pt . refer to heme dc home if third trop is nL
--- NOTE | 2020-01-11 18:09 | DS ---
Physical Exam: SUBJECTIVE: Patient seen and examined at the bedside. Stated that her pain had improved and was 1/10. Denied any sob, abd pain, n/v/c/d, daiphoresis, palpitations, lightheadedness, dizziness, headaches, radiation of pain, visual changes, dysuria, hematuria. OBJECTIVE: Vital Signs Period Temp Pulse Resp BP Sys/Wilson Pulse Ox Last 24 Hr 97.7 F-98.1 F 51-67 16-18 135-162/72-79 98-100 PHYSICAL EXAM GENERAL: The patient is awake, alert, and fully oriented, in no acute distress. HEAD: Normal with no signs of trauma. EYES: PERRL, extraocular movements intact, conjunctiva clear. ENT: Oropharynx clear without exudates, moist mucous membranes. LUNGS: Breath sounds equal, clear to auscultation bilaterally, no wheezes, no crackles, no accessory muscle use. HEART: Regular rate and rhythm, S1, S2 without murmur, rub. ABDOMEN: Soft, nontender, nondistended, normoactive bowel sounds, no guarding, no rebound, no masses. EXTREMITIES: 2+ pulses, warm, well-perfused, no edema. NEUROLOGICAL: Cranial nerves II through XII grossly intact. 5/5 muscle strength bilaterally upper and lower extremities. PSYCH: Normal mood, normal affect. LABS Laboratory Results - last 24 hr 01/11/20 01/11/20 01/11/20 04:10 04:10 04:10 WBC 4.4 RBC 3.35 L Hgb 10.1 L Hct 30.7 L MCV 91.5 MCH 30.1 MCHC 32.9 RDW 15.9 H Plt Count 227 MPV 8.0 Absolute Neuts (auto) 2.6 Neutrophils % 59.3 D Lymphocytes % 25.8 D Monocytes % 9.8 Eosinophils % 4.3 Basophils % 0.8 Nucleated RBC % 0 PT with INR 12.90 INR 1.09 PTT (Actin FS) 34.5 Sodium 140 Potassium 3.5 Chloride 109 H Carbon Dioxide 25 Anion Gap 6 L BUN 13.0 Creatinine 0.9 Est GFR (CKD-EPI)AfAm 87.63 Est GFR (CKD-EPI)NonAf 75.61 Random Glucose 100 Calcium 8.7 Iron 34 L TIBC 330 Iron Saturation 10 L Unsaturated IBC 296 H Ferritin 6.2 L Total Bilirubin 0.3 AST 10 L ALT 12 L Alkaline Phosphatase 58 Creatine Kinase 86 Troponin I 0.02 Total Protein 6.9 Albumin 3.6 Vitamin B12 328 Serum Folate 8 01/11/20 01/11/20 10:00 14:45 WBC RBC Hgb Hct MCV MCH MCHC RDW Plt Count MPV Absolute Neuts (auto) Neutrophils % Lymphocytes % Monocytes % Eosinophils % Basophils % Nucleated RBC % PT with INR INR PTT (Actin FS) Sodium Potassium Chloride Carbon Dioxide Anion Gap BUN Creatinine Est GFR (CKD-EPI)AfAm Est GFR (CKD-EPI)NonAf Random Glucose Calcium Iron TIBC Iron Saturation Unsaturated IBC Ferritin Total Bilirubin AST ALT Alkaline Phosphatase Creatine Kinase Troponin I 0.05 < 0.02 Total Protein Albumin Vitamin B12 Serum Folate HOSPITAL COURSE: Allen Hutchinson is a 49 year old female with reported history of HI (approx 10 years ago) admitted rule out ACS. EKG noting NSR with no acute ST segment changes. Troponins drawn x3 0.02-->0.05-->0.02. Chest x-ray with no acute pathology. Transthoracic echo as below. Patient was seen by cardiology and recommended for outpatient follow up with possible stress test in the future as she has a history of borderline positive stress tests and abnormal MIBI. Was found to have anemia on admission with low iron stores and low iron saturation. Was advised to follow up with GI outpatient and started on iron supplementation and advised for hematology outpatient for possible iron infusions. Patient was advised to follow up with her PCP, sales center manager, manager trading, medical terminologist and started on iron supplementation. Patient was discharged in stable medical condition. ECHO RESULTS Summary Statements The left ventricular size, thickness and function are normal Ejection Fraction = 65%. The transmitral spectral Doppler flow pattern is normal for age. The right ventricle is normal in size and function. Normal left and right atrial size and function. The mitral valve is normal. There is mild mitral regurgitation. The tricuspid valve is normal. There is trace tricuspid regurgitation. The aortic valve is normal in structure and function. The pulmonic valve is not well seen, but is grossly normal. The aortic root is normal size. Normal aortic arch, descending and ascending aorta There is no pericardial effusion. Date of Admission:01/11/20 Date of Discharge: 01/11/20 Minutes to complete discharge: 35 Discharge Summary Problems reviewed: Yes Reason For Visit: CHEST PAIN Condition: Improved - Instructions Diet, Activity, Other Instructions: You were admitted for chest pain. You had an echocardiogram (ultrasound of the heart) which showed normal size, function, thickness of the heart with some minor valve abnormalities. You had an EKG (electrical evaluation of the heart) which showed normal electrical activity of the heart. You were seen by the sales center manager who recommended that you follow up with them in the outpatient clinic and possibly have a stress test at that time. You were found to have an anemia which showed that you had iron deficiency in your blood. You will be started on an iron supplementation medication to assist you and are recommended to follow up with a manager trading (stomach, liver, intestine doctor) for possible further evaluation of your anemia including possible colonoscopy. MEDICATIONS START to take ferrous sulfate 325mg three times daily Continue to take all your medications as prescribed to you. REFERRALS Please follow up with your primary care physician, Dr. Tc Elliott, within 1 week. Please follow up with the sales center manager, Dr. Dominic Joyce, within 1 week. Please follow up with the manager trading, Dr. Milton Daley, within [address] Ventura to evaluate fro iron transfusion . ( blood doctor ) SPECIAL INSTRUCTIONS Please follow up with your physicians. Please obtain bloodwork in 1 week to assess your anemia at your primary care office. If you have any further symptoms of increasing chest pain, shortness of breath, fevers, lightheadedness, falls, palpitations, or any other general feelings of unwellness, please call 911 or go to your nearest emergency room. Referrals: Davi Daley DO [Staff Physician] - 2 Weeks Dominic Joyce MD [Staff Physician] - 1 Week Tc Elliott MD [Primary Care Provider] - 1 Week Brendan Ventura MD [Staff Physician] - Disposition: HOME - Home Medications Comprehensive Discharge Medication List: Ambulatory Orders Aspirin 81 mg PO DAILY 12/19/17 Ferrous Sulfate [Feosol] 325 mg PO TID #60 tablet 01/11/20 Problem List - Problems (1) Atypical chest pain Code(s): R07.89 - OTHER CHEST PAIN (2) Chest pain at rest Code(s): R07.9 - CHEST PAIN, UNSPECIFIED (3) Kidney stone Code(s): N20.0 - CALCULUS OF KIDNEY This patient is new to me today: Yes Date on this admission: 01/11/20 Emergency Visit: Yes ED Registration Date: 01/11/20 Care time: The patient presented to the Emergency Department on the above date and was hospitalized for further evaluation of their emergent condition. Critical Care patient: No - Discharge Referral Referred to [facility] Med P.C[facility] Yes Physician Referral: Milton Daley DO (GI)
[2020-01-12] MEDS ORDERED: ASPIRIN 81 MG CHEWABLE TABLETS PO SCH (10:00)
== END 2020-01-11 16:59 | disposition home or self-care (01) ==
LOC: JER 02:02 → JERBED 05:11
PROVIDERS: ADMIT Internal Medicine; ATTEND Internal Medicine
PROC: 3E0337Z Introduction of Electrolytic and Water Balance Substance into Peripheral Vein, Percutaneous Approach (ICD-10-PCS; principal; 2020-01-11)
DX: R07.89 Other chest pain (principal); D64.9 Anemia, unspecified; I25.2 Old myocardial infarction; Z98.61 Coronary angioplasty status
CPT/HCPCS: 36415; 71045-TC-FY; 80053; 82550; 82607; 82728; 82746; 83540; 83550; 84466; 84484; 85025; 85610; 85730; 93005; 93010; 93306-TC; 99285-25; G0378; J7030